=== PATIENT | female | born 1985 | race Caucasian/White ===

== ENCOUNTER 2023-09-27 11:32 | Emergency (ER) | payer OTHER, SELFPAY ==
[2023-09-27 11:37] VITALS: BP 160/101; PULSE 94; RESP 16; TEMP 36.6; O2SAT 99; BMI 58.1
--- NOTE | 2023-09-27 11:44 | ED_ITS ---
HPI - Nausea/Vomiting/Diarrhea General Chief complaint: Abdominal Pain Stated complaint: NAUSEA/VOMITTING Time Seen by Provider: 09/27/23 11:40 Source: patient Mode of arrival: walk-in Limitations: no limitations History of Present Illness HPI Narrative: 38-year-old female presents for nausea vomiting diarrhea. It started at 430 this morning. She ate chicken last night but other people did and they did not get ill. She recently had her dose of Ozempic increased, a few days ago. The diarrhea is watery, no blood. She has not had a fever. Related Data Allergies Allergy/AdvReac Type Severity Reaction Status Date / Time amoxicillin Allergy Unknown Verified 09/27/23 11:37 phentermine [From Adipex-P] Allergy Unknown Verified 09/27/23 11:37 Review of Systems ROS Narrative A ten point review of systems is negative except as noted above. Exam Narrative Exam Narrative: Nurses note and vital signs reviewed and patient is not hypoxic. General: The patient appears well and in no apparent distress. Patient is resting comfortably on cart. Skin: Warm, dry, no pallor noted. There is no rash noted. Head: Normocephalic, atraumatic Eye: Normal conjunctiva, no drainage Ears, Nose, Mouth, and Throat: oral mucosa is moist. Nares patent. Cardiovascular: Regular Rate and Rhythm Respiratory: Patient is in no distress, no accessory muscle use, lungs are clear to auscultation, no wheezing, rales or rhonchi Back: non-tender, no CVA tenderness bilaterally to percussion. GI: Obese, soft, mild tenderness on palpation Musculoskeletal: The patient has no evidence of calf tenderness, no pitting edema, symmetrical pulses noted bilaterally Neurological: A&O, normal speech Psychiatric: Cooperative Constitutional Vital Signs, click to edit/add: Last Vital Signs Temp 97.8 F 09/27/23 11:37 Pulse 88 09/27/23 14:56 Resp 16 09/27/23 14:56 BP 128/92 H 09/27/23 14:56 Pulse Ox 99 09/27/23 14:56 O2 Del Method Room Air 09/27/23 12:41 Course Vital Signs Vital signs: Vital Signs Temperature 97.8 F 09/27/23 11:37 Pulse Rate 94 H 09/27/23 11:37 Respiratory Rate 16 09/27/23 11:37 Blood Pressure 160/101 H 09/27/23 11:37 Pulse Oximetry 99 09/27/23 11:37 Oxygen Delivery Method Room Air 09/27/23 11:37 Temperature 97.8 F 09/27/23 11:37 Pulse Rate 88 09/27/23 14:56 Respiratory Rate 16 09/27/23 14:56 Blood Pressure 128/92 H 09/27/23 14:56 Pulse Oximetry 99 09/27/23 14:56 Oxygen Delivery Method Room Air 09/27/23 12:41 MDM - Nausea/Vomiting/Diarrhea MDM Narrative Medical decision making narrative: Her workup is negative. Stool culture is pending. She is feeling improved and is able to be discharged home. No evidence of bowel obstruction. I discussed with her that this could be a side effect of the Ozempic whose dose was increased 2 days ago. Treatment diagnosis and follow-up were discussed with the patient Differential Diagnosis Differential diagnosis: Likely food poisoning, gastroenteritis, drug-induced nausea and vomiting and dehydration Lab Data Attestation: I reviewed the patient's lab results. Labs: Lab Results 09/27/23 Range/Units 12:06 WBC 12.2 H (4.0-11.0) 10^3/uL RBC 4.53 (4.20-5.40) 10^6/uL Hgb 12.6 (12.0-16.0) g/dL Hct 39.8 (36.0-48.0) % MCV 87.9 (81.0-99.0) fL MCH 27.8 (26.7-34.0) pg MCHC 31.7 (29.9-35.2) g/dL RDW 14.2 (11.0-15.0) % Plt Count 388 (150-450) 10^3/uL MPV 9.3 L (9.5-13.5) fL Neut % (Auto) 75.6 H (43.0-75.0) % Lymph % (Auto) 15.9 L (20.5-60.0) % Hardin % (Auto) 5.7 (1.7-12.0) % Eos % (Auto) 1.9 (0.9-7.0) % Baso % (Auto) 0.4 (0.2-2.0) % Neut # (Auto) 9.2 H (1.4-6.5) 10^3/uL Lymph # (Auto) 1.9 (1.2-3.8) 10^3/uL Hardin # (Auto) 0.7 (0.3-0.8) 10^3/uL Eos # (Auto) 0.2 (0.0-0.7) 10^3/uL Baso # (Auto) 0.1 (0.0-0.1) 10^3/uL Abs Immat Gran (auto) 0.06 H (0.00-0.03) 10^3/uL Imm/Tot Granulo (auto) 0.5 (0.0-0.5) % Sodium 138 (136-145) mmol/L Potassium 3.9 (3.5-5.1) mmol/L Chloride 104 (98-107) mmol/L Carbon Dioxide 22.8 (21.0-32.0) mmol/L Anion Gap 15.1 BUN 12.0 (7.0-18.0) mg/dL Creatinine 0.75 (0.55-1.02) mg/dL Est GFR ( Amer) >60 (>=60) Est GFR (Non-Af Amer) >60 (>=60) BUN/Creatinine Ratio 16.0 Glucose 89 (74-106) mg/dL Calcium 9.1 (8.5-10.1) mg/dL Serum HCG, Qual Negative (NEGATIVE) Imaging Data Abdominal x-ray: Radiologist's impression: ITS Impressions Chest/Abdomen X-ray 09/27/23 13:20 IMPRESSION: 1. No acute pulmonary abnormality. 2. Nonobstructed bowel gas pattern. Electronically authenticated by: NILES DUCKWORTH Date: 09/27/2023 14:59 Discharge Plan Discharge Chief Complaint: Abdominal Pain Clinical Impression: Nausea vomiting and diarrhea Patient Disposition: Home, Self-Care Time of Disposition Decision: 15:13 Condition: Good Mode of Transportation: Private Vehicle Instructions: Acute Nausea and Vomiting (ED), Acute Diarrhea (ED) Stand Alone Forms: Portal Instructions Referrals: LIVE OMER DO [Primary Care Provider] - 1 week
[2023-09-27] MEDS: ONDANSETRON PF 4 MG/2 ML VIAL IV (12:10)
[2023-09-27] MEDS: 0.9 % SODIUM CHLORIDE 1,000 ML 1000 ML IV (12:10)
[2023-09-27 12:19] LABS: Basophils Absolute Auto 0.1 10^3/uL (0.0-0.1); Basophils Percent Auto 0.4 % (0.2-2.0); Eosinophils Absolute Auto 0.2 10^3/uL (0.0-0.7); Eosinophils Percent Auto 1.9 % (0.9-7.0); Hematocrit 39.8 % (36.0-48.0); Hemoglobin 12.6 g/dL (12.0-16.0); Immature Granulocytes Abs Auto 0.06 10^3/uL (0.00-0.03); Immature Granulocytes Pct Auto 0.5 % (0.0-0.5); Lymphocytes Absolute Auto 1.9 10^3/uL (1.2-3.8); Lymphocytes Percent Auto 15.9 % (20.5-60.0); Mean Corpuscular HGB Conc 31.7 g/dL (29.9-35.2); Mean Corpuscular Hemoglobin 27.8 pg (26.7-34.0); Mean Corpuscular Volume 87.9 fL (81.0-99.0); Mean Platelet Volume 9.3 fL (9.5-13.5); Monocytes Absolute Auto 0.7 10^3/uL (0.3-0.8); Monocytes Percent Auto 5.7 % (1.7-12.0); Neutrophils Absolute Auto 9.2 10^3/uL (1.4-6.5); Neutrophils Percent Auto 75.6 % (43.0-75.0); Platelet Count 388 10^3/uL (150-450); Red Blood Count 4.53 10^6/uL (4.20-5.40); Red Cell Distribution Width 14.2 % (11.0-15.0); White Blood Count 12.2 10^3/uL (4.0-11.0)
[2023-09-27 12:28] LABS: Anion Gap 15.1; Calcium 9.1 mg/dL (8.5-10.1); Carbon Dioxide 22.8 mmol/L (21.0-32.0); Chloride 104 mmol/L (98-107); Estimated GFR (African America >60 (>=60); Estimated GFR (Non-African Ame >60 (>=60); Glucose 89 mg/dL (74-106); Potassium 3.9 mmol/L (3.5-5.1); Sodium 138 mmol/L (136-145)
[2023-09-27 12:31] LABS: HCG Qualitative NEGATIVE (NEGATIVE)
[2023-09-27 12:41] VITALS: BP 130/87; PULSE 74; RESP 16; O2SAT 98
--- NOTE | 2023-09-27 13:20 | XR_ITS ---
The [address] [address] Patient Name: HOLLY WRIGHT MRN: [id number] date: 1985 Sex: F Assigned Patient Location: ER Current Patient Location: ER Accession/Order Number: [id number] Exam Date: 09/27/2023 14:13 Report Date: 09/27/2023 14:59 At the request of: IMANI KATZ Procedure: XR acute abdomen series EXAM: XR acute abdomen series HISTORY: pain COMPARISON: None. TECHNIQUE: Radiograph of the chest with upright and supine radiograph of abdomen pelvis FINDINGS: Lungs are without focal consolidation, pneumothorax, or pleural effusion. Cardiac size is normal. Degenerative changes of the thoracic spine. No free air, pneumobilia, portal venous gas. No dilated air-filled loop of bowel. No abnormal calcification projects over the renal shadows or expected course of ureters. Phleboliths within the right hemipelvis. XR/XR acute abdomen series IMPRESSION: 1. No acute pulmonary abnormality. 2. Nonobstructed bowel gas pattern. Electronically authenticated by: NILES DUCKWORTH Date: 09/27/2023 14:59
[2023-09-27 14:09] VITALS: BP 127/81; PULSE 77; RESP 16; O2SAT 99
[2023-09-27 14:56] VITALS: BP 128/92; PULSE 88; RESP 16; O2SAT 99
== END 2023-09-27 15:32 | disposition home or self-care (01) ==
PROVIDERS: Emergency Provider Emergency Medicine; PCP Family Medicine
DX: R11.2 Nausea with vomiting, unspecified (principal); R19.7 Diarrhea, unspecified; Z79.899 Other long term (current) drug therapy
CPT/HCPCS: 36415; 74022; 80048; 84703; 85025; 87045; 87046; 87427; 96361; 96374; 99285; J2405